=== PATIENT | female | born 2000 | race Caucasian/White ===

== ENCOUNTER → 2023-12-03 16:08 | Outpatient (BNVA) | payer OTHER, SELFPAY | PROVIDERS: Visit Provider Nurse Practitioner Psychiatric/Mental Health ==

== ENCOUNTER → 2024-02-28 14:13 | Outpatient (BNVA) | payer OTHER, SELFPAY | PROVIDERS: PCP Nurse Practitioner Family; Visit Provider Nurse Practitioner Family | DX: N76.0 Acute vaginitis (principal) | CPT/HCPCS: 81003 ==

== ENCOUNTER 2024-06-23 13:39 | Outpatient (REF) | payer OTHER, SELFPAY ==
--- NOTE | ~2024-06-23 | XR_ITS ---
EXAMINATION: XR LUMBOSACRAL SPINE CLINICAL INFORMATION: M54.50 - Low back pain, unspecified COMPARISON: None available. TECHNIQUE: Three views of the lumbosacral spine. FINDINGS: No acute cortical disruption or gross malalignment. No lytic or blastic lesions. No metallic or radiopaque foreign body. XR/XR lumbar spine 2-3V IMPRESSION: No acute fracture or listhesis. Negative x-ray. Electronically signed by: Dony Rosario MD 06/23/2024 03:28 PM EDT
== END 2024-06-23 13:40 | disposition home or self-care (01) ==
LOC: HO.HMGCX 13:39
PROVIDERS: PCP Nurse Practitioner Family; Visit Provider Nurse Practitioner Family
DX: M54.50 Low back pain, unspecified (principal); R30.0 Dysuria
CPT/HCPCS: 72100; 81003

== ENCOUNTER 2024-06-23 13:39 | Outpatient (AMB) | payer OTHER, SELFPAY ==
--- OUTSIDE RECORDS SUMMARY | 2024-06-23 13:41 | XMS_ITS | Data Portability ---
Author Organization [facility] [address] Address [address] [place] [address] Assessment Encounter Date Assessment Date Assessment LastModified by Organization Details LastModified Time 05/28/2023 05/28/2023 Based on your exam and presentation my recommendation if for you to go immediately to the Emergency Room. The ER is better equipped to be able to assess you and do more studies to make sure that your complaint is not life threatening. Unfortunately, in the urgent care setting we do not have the ability to do many tests and studies. My concern is for you, which is why my recommendation is the Emergency Room. jay Not available 05/28/2023 17:20:22 Plan of Treatment Reminders Order Date Submit Date Provider Last Modified By Organization Details Last Modified Time Details Appointments None recorded. Lab urinalysis, dipstick 2023 024 djkylevierMikhail _[facility], [address] [place] [address], [phone], 19:03:12 culture, urine 2023 024 [facility], [address] [place] [address], [place], [address], 22:05:54 test, urine 2023 024 jay [facility], [address] [place], [address], 17:20:59 urinalysis, dipstick 2023 024 jay _[facility], [address], [place], [address], 17:21:00 culture, urine 2023 [facility]), [address], [place], [address], 20:06:17 Referral None recorded. Procedures None recorded. Surgeries None recorded. Imaging None recorded. Medication Orders cephalexin 500 mg capsule 2023 [facility] [place], [address] [place], [address], 10:04:24 Diflucan 150 mg tablet 2023 [facility] [place], [address] [place], [address], 10:04:24 Patient TargetsNo targets recorded. Patient Instructions Encounter Date Encounter Id Patient Instructions Last Modified By Organization Details Last Modified Time 05/28/2023 [id number] painful urinatio n (dysuria): care instructions jay Not available 05/28/2023 17:20:57 09/27/2023 [id number] painful urinatio n (dysuria): care instructions sen Not available 09/27/2023 19:03:10 Reason for Referral None Reported. Results Created Date Observation Date Name Description Value Unit Range Abnormal Flag Note LastModifiedBy Organization Detail LastModifiedTime 05/28/1905/31/2023 URINE CULTU CECILIO BONILLA urine culture, routine FINAL REPORT abnormal Not Available [facility] ([facility]) [address] [facility], [place], [address], 05/31/2023 20:06:16 05/28/19 24 05/31/2023 URINE CULTU RECECILIO result 1 COMMEN T abnormal Beta hemol ytic Strep tococ cus, group B Less than 10,00 0 colon ies/m L Penic illin and ampic illin are drugs of choic e for treat ment of beta- hemol ytic strep tococ clarke infec tions . Susce ptibi lity testi ng of penic illin s and other beta- lacta m agent s appro quique by the FDA for treat ment of beta- hemol ytic strep tococ clarke infec tions need not be perfo rmed routi eben becau se nonsu scept ible isola edilia are extre teetee rare in any beta- hemol ytic strep tococ cus and have not been repor isabelle for Strep tococ cus pyoge edwar (grou p A). (CLSI ) Not Available [facility] ([facility]) [address] [place], [address], 05/31/2023 20:06:16 05/28/19 24 05/31/2023 URINE CULTU RE, ROUTI NE result 2 COMMEN T Mixed uroge nital jose 10,00 0-25, 000 colon y formi ng units per mL Not Available [facility] ([facility]) [address] [facility], [place], [address], 05/31/2023 20:06:16 05/28/19 24 05/28/2023 urina lysis , dipst ick Unknown Analyte Yellow Not Available [facility] [address] [place] [address], [phone], 05/28/2023 16:56:28 05/28/19 24 05/28/2023 urina lysis , dipst ick Unknown Analyte Slight ly Cloudy Not Available [facility] [address] [place] [address], [address], 05/28/2023 16:56:28 05/28/19 24 05/28/2023 urina lysis , dipst ick Unknown Analyte Negati ve Not Available [facility] [address] [place] [address], [phone], 05/28/2023 16:56:28 05/28/19 24 05/28/2023 urina lysis , dipst ick Unknown Analyte Negati ve Not Available [facility] [address] [place] [address], [address], 05/28/2023 16:56:28 05/28/19 24 05/28/2023 urina lysis , dipst ick Unknown Analyte Trace Not Available [facility] [address] [place] [address], [address], 05/28/2023 16:56:28 05/28/19 24 05/28/2023 urina lysis , dipst ick Unknown Analyte 1.025 Not Available [facility] [address] [place] [address], [address], 05/28/2023 16:56:28 05/28/19 24 05/28/2023 urina lysis , dipst ick Unknown Analyte Trace- intact Not Available [facility] [address] [place] [address], [address], 05/28/2023 16:56:28 05/28/19 24 05/28/2023 urina lysis , dipst ick Unknown Analyte 6.5 Not Available [facility] [address] [place] [address], [address], 05/28/2023 16:56:28 05/28/19 24 05/28/2023 urina lysis , dipst ick Unknown Analyte 30 mg/dL Not Available [facility] [address] [place] [address], [address], 05/28/2023 16:56:28 05/28/19 24 05/28/2023 urina lysis , dipst ick Unknown Analyte 1.0 E.U./d L Not Available [facility] [address] [place] [address], [phone], 05/28/2023 16:56:28 05/28/19 24 05/28/2023 urina lysis , dipst ick Unknown Analyte Negati ve Not Available [facility] [address] [place] [address], [address], 05/28/2023 16:56:28 05/28/19 24 05/28/2023 urina lysis , dipst ick Unknown Analyte Negati ve Not Available [facility] [address] [place] [address], [address], 05/28/2023 16:56:28 05/28/19 24 05/28/2023 pregn anthony test, urine Unknown Analyte negati ve Not Available ie [address], [address], 05/28/2023 16:56:06 09/27/19 24 09/28/2023 URINE CULTU RE, ROUTI NE urine culture, routine FINAL REPORT Not Available [facility] ([facility]) [address] [place], [address], 09/28/2023 22:05:54 09/27/1909/28/2023 URINE CULTU RE, ROUTI NE result 1 COMMEN T Cultu re shows less than 10,00 0 colon y formi ng units of bacte usama per fina liter of urine . This colon y count is not gener ally consi dered to be clini edith signi fican t. Not Available [facility] ([facility]) [address] [facility], [place], [address], 09/28/2023 22:05:54 09/27/19 24 09/27/2023 urina lysis , dipst ick Unknown Analyte Normal = light yellow Not Available [facility], [address], 09/27/2023 18:46:13 09/27/19 24 09/27/2023 urina lysis , dipst ick Unknown Analyte Yellow Not Available [facility] [address] [place] [address], [phone], 09/27/2023 18:46:13 09/27/19 24 09/27/2023 urina lysis , dipst ick Unknown Analyte Normal = clear Not Available [facility] [address] [place] [address], [address], 09/27/2023 18:46:13 09/27/19 24 09/27/2023 urina lysis , dipst ick Unknown Analyte Clear Not Available [facility] [address] [place] [address], [address], 09/27/2023 18:46:13 09/27/19 24 09/27/2023 urina lysis , dipst ick Unknown Analyte Normal = negati ve Not Available [facility] [address] [place] [address], [address], 09/27/2023 18:46:13 09/27/19 24 09/27/2023 urina lysis , dipst ick Unknown Analyte Negati ve Not Available [facility] [address] [place] [address], [address], 09/27/2023 18:46:13 09/27/19 24 09/27/2023 urina lysis , dipst ick Unknown Analyte Normal = Negati ve Not Available [facility] [address] [place] [address], [phone], 09/27/2023 18:46:13 09/27/19 24 09/27/2023 urina lysis , dipst ick Unknown Analyte Negati ve Not Available [facility] [address] [place] [address], [phone], 09/27/2023 18:46:13 09/27/19 24 09/27/2023 urina lysis , dipst ick Unknown Analyte Normal = Negati ve Not Available [facility] [address] [place] [address], [address], 09/27/2023 18:46:13 09/27/19 24 09/27/2023 urina lysis , dipst ick Unknown Analyte 40 mg/dL Not Available [facility] [address] [place] [address], [address], 09/27/2023 18:46:13 09/27/19 24 09/27/2023 urina lysis , dipst ick Unknown Analyte Normal = 1.010, 1.015, 1.020 Not Available [facility] ie [address], [address], 09/27/2023 18:46:13 09/27/19 24 09/27/2023 urina lysis , dipst ick Unknown Analyte 1.015 Not Available [facility] [address], [address], 09/27/2023 18:46:13 09/27/19 24 09/27/2023 urina lysis , dipst ick Unknown Analyte Normal = Negati ve Not Available [facility] [address] [place] [address], [address], 09/27/2023 18:46:13 09/27/19 24 09/27/2023 urina lysis , dipst ick Unknown Analyte Trace- lysed Not Available [facility] ie [address], [address], 09/27/2023 18:46:13 09/27/19 24 09/27/2023 urina lysis , dipst ick Unknown Analyte Normal = 6.5, 7.0, 7.5, 8.0 Not Available [facility] ie [address], [address], 09/27/2023 18:46:13 09/27/19 24 09/27/2023 urina lysis , dipst ick Unknown Analyte 7.0 Not Available e [address], [address], 09/27/2023 18:46:13 09/27/19 24 09/27/2023 urina lysis , dipst ick Unknown Analyte Normal = Negati ve Not Available ie [address], [address], 09/27/2023 18:46:13 09/27/19 24 09/27/2023 urina lysis , dipst ick Unknown Analyte Negati ve Not Available [facility] ie [address], [address], 09/27/2023 18:46:13 09/27/19 24 09/27/2023 urina lysis , dipst ick Unknown Analyte Normal = 0.2, 1.0 Not Available ie [address], [address], 09/27/2023 18:46:13 09/27/19 24 09/27/2023 urina lysis , dipst ick Unknown Analyte 0.2 E.U./d L Not Available [facility] ie [address], [address], 09/27/2023 18:46:13 09/27/19 24 09/27/2023 urina lysis , dipst ick Unknown Analyte Normal = Negati ve Not Available [facility] ie [address], [address], 09/27/2023 18:46:13 09/27/19 24 09/27/2023 urina lysis , dipst ick Unknown Analyte Negati ve Not Available [place] [facility] [address] [place], [address], 09/27/2023 18:46:13 09/27/19 24 09/27/2023 urina lysis , dipst ick Unknown Analyte Normal = Negati ve Not Available [facility] [address] [place], [address], 09/27/2023 18:46:13 09/27/19 24 09/27/2023 urina lysis , dipst ick Unknown Analyte Negati ve Not Available [facility] [address] [place], [address], 09/27/2023 18:46:13 Result Notes None recorded. Problems Name Problem SNOMED Code Status Onset Date Resolution Date Notes Provider Name and Address Organization Details Recorded Time Acne 34728497 Active Noemi ayon, [place] - [facility] 4 16:52:04 Depressive disorder 48954707 Active Noemi ayon, PA - [facility] 4 16:52:24 Dysuria 60747056 Active 024 BUZZ LEAHY NP [address] [place], [address], [place] - [facility] 4 17:14:24 Urinary symptoms 564457465 Active 024 BUZZ LEAHY NP [address] [place], [address], [place] - [facility] 4 17:15:30 Notes:PCOS Problem Notes None recorded. Medical Equipment None Reported. Allergies Allergen ID Allergen Name Allergen Category Reaction Reaction Severity Criticality Documentation Date Start Date Code Code System Note Provider Name and Address Organization Details Recorded Time 000772 Oxycontin medicatio n Not available Not available Not available 05/28/2023 73504 6 RxNorm Noemi ayon, PA - [facility] 4 16:50:17 107634 oxycodone medicatio n Not available Not available Not available 05/28/2023 7804 RxNorm DIEGO Engle - [facility] 16:50:24 Medications Name Sig Start Date Stop Date Status Note LastModified by Organization Details LastModified Time metformin 500 mg tablet TAKE 1 TABLET BY MOUTH ONCE DAILY 09/26 completed Not Available Not Available Not Available tizanidine 2 mg tablet TAKE 1 TABLET BY MOUTH THREE TIMES DAILY NEEDED FOR MUSCLE SPASMS. DO not drink alcohol OR drive while taking this med 05/27 completed Not Available Not Available Not Available fluconazole 150 mg tablet Take 1 tablet by oral route for 1 day, for possible yeast. active Not Available Not Available No t Available sulfamethox azole 400 mg-trimetho prim 80 mg tablet TAKE 1 TABLET BY MOUTH TWICE DAILY active Not Available Not Available No t Available tretinoin 0.025 % topical cream Apply small pea sized amount to entire face at night every 3rd night. May increase to every other night after about 3 weeks as tolerated , then increase to nightly as tolerated . Apply with a moisturiz er. If skin gets too dry use smaller amount. 05/27 completed Not Available Not Available Not Available bupropion HCl SR 100 mg tablet,12 hr sustained-r elease TAKE 1 TABLET by mouth once a day active Not Available Not Available No t Available amoxicillin 875 mg tablet TAKE 1 TABLET BY MOUTH TWICE DAILY FOR 10 DAYS 05/27 completed Not Available Not Available Not Available clindamycin 1 % topical gel Apply to affected areas once daily 05/27 completed Not Available Not Available Not Available doxycycline monohydrate 100 mg capsule take 1 cap by mouth once daily with food, do not lay down 1hr after taking. Do not take with dairy. Start after finishing current antibioti cs. 09/26 completed Not Available Not Available Not Available cephalexin 500 mg capsule Take 1 capsule 3 times a day by oral route for 7 days, for uti. active Not Available Not Available No t Available fluoxetine 10 mg capsule TAKE 1 CAPSULE BY MOUTH ONCE DAILY 05/27 completed Not Available Not Available Not Available hydroxyzine HCl 25 mg tablet TAKE 1 TABLET BY MOUTH THREE TIMES DAILY NEEDED FOR ANXIETY active Not Available Not Available No t Available ibuprofen 600 mg tablet TAKE 1 tablet by mouth with food or milk as needed Three times a day take scheduled with food for 1 week then as needed 05/27 completed Not Available Not Available Not Available spironolact one 50 mg tablet TAKE 1 TABLET BY MOUTH ONCE DAILY 09/26 completed Not Available Not Available Not Available escitalopra m 10 mg tablet TAKE 1 TABLET BY MOUTH ONCE DAILY active Not Available Not Available No t Available nitrofurant oin monohydrate /macrocryst als 100 mg capsule TAKE 1 CAPSULE BY MOUTH TWICE DAILY FOR 7 DAYS WITH food 05/27 completed Not Available Not Available Not Available Vitals Date Recorded Body height Body mass index (BMI) Body weight Oxygen saturation Oxygen saturation in Arterial blood by Pulse oximetry Heart rate Respiratory rate Body temperature Systolic blood pressure Diastolic blood pressure Provider Name and Address Organization Details Last Updated DateTime 4 162.56 cm 23.2 kg/m2 24502.9 7 g 97 % 97 % 76 /min 16 /min 98.3 [degF] 114 mm[Hg] 74 mm[Hg] Noemi Zuniga [facility] 4 16:55:21 Date Recorded Body height Body mass index (BMI) Body weight Oxygen saturation Oxygen saturation in Arterial blood by Pulse oximetry Heart rate Respiratory rate Body temperature Systolic blood pressure Diastolic blood pressure Provider Name and Address Organization Details Last Updated DateTime 4 162.56 cm 23.2 kg/m2 13821.9 7 g 98 % 98 % 78 /min 18 /min 98 [degF] 126 mm[Hg] 77 mm[Hg] ITALO SHAH [facility] 4 18:45:54 Social History Question Answer Notes LastModified by Max Rumpus Details LastModified Time Tobacco Smoking Status Current Every Day Smoker Noemi ayon PA [facility] 05/28/2023 16:53:58 Which Illicit Or Recreational Drugs Have You Used? Marijuana [email or web address] Information not available 05/28/2023 Sex: Unknown Functional Status Question Answer Note LastModified by Max Rumpus Details LastModified Time Do you use any illicit or recreational drugs? Yes [email or web address] Information not available 05/28/2023 Do you or have you ever used any other forms of tobacco or nicotine? Yes [email or web address] Information not available 05/28/2023 What is your level of alcohol consumption? Occasional [email or web address] Information not available 05/28/2023 Do you or have you ever used smokeless tobacco? Never used smokeless tobacco Information not available 05/28/2023 Do you or have you ever used e-cigarettes or vape? Current user of electronic cigarettes [email or web address] Information not available 05/28/2023 Mental Status None recorded. Family History Nothing Reported Notes:No famm Hx Medical History No medical history recorded. Gynecological History Statement/Question Response Date of LMP 08/31/2023 Is there any chance of ? No LMP Approximate Obstetrics History GPAL:G 0 P 0 0 0 0 Immunizations Vaccine Type Date Status Note Provider Nam e and Address Organization Details Recorded Time HPV9 6 completed ITALO MINEO null, PA - [facility] 09/27/2023 18:43:19 HPV9 9 completed ITALO MINEO null, PA - [facility] 09/27/2023 18:43:19 HPV9 6 completed ITALO MINEO null, PA - [facility] 09/27/2023 18:43:19 IPV 1 completed ITALO MINEO null, PA - [facility] 09/27/2023 18:43:19 IPV 1 completed ITALO MINEO null, PA - [facility] 09/27/2023 18:43:19 IPV 5 completed ITALO MINEO null, PA - [facility] 09/27/2023 18:43:19 IPV 0 completed ITALO MINEO null, PA - [facility] 09/27/2023 18:43:19 MMR 2 completed ITALO MINEO null, PA - [facility] 09/27/2023 18:43:19 MMR 4 completed ITALO MINEO null, PA - [facility] 09/27/2023 18:43:19 MMRV 7 completed ITALO MINEO null, PA - [facility] 09/27/2023 18:43:19 COVID-19, mRNA, LNP-S, PF, 30 mcg/0.3 mL dose 1 completed ITALO MINEO null, PA - [facility] 09/27/2023 18:43:19 COVID-19, mRNA, LNP-S, PF, 30 mcg/0.3 mL dose 1 completed ITALO MINEO null, PA - [facility] 09/27/2023 18:43:19 pneumococcal conjugate PCV 7 2 completed ITALO MINEO null, PA - [facility] 09/27/2023 18:43:19 pneumococcal conjugate PCV 7 1 completed ITALO MINEO null, PA - [facility] 09/27/2023 18:43:19 pneumococcal conjugate PCV 7 1 completed ITALO MINEO null, PA - [facility] 09/27/2023 18:43:19 pneumococcal conjugate PCV 7 0 completed ITALO MINEO null, PA - [facility] 09/27/2023 18:43:19 Tdap 2 completed ITALO MINEO null, PA - [facility] 09/27/2023 18:43:19 varicella 2 completed ITALO MINEO null, PA - [facility] 09/27/2023 18:43:19 varicella 1 completed ITALO MINEO null, PA - [facility] 09/27/2023 18:43:19 Influenza, split virus, trivalent, preservative 3 completed ITALO MINEO null, PA - [facility] 09/27/2023 18:43:19 Influenza, split virus, trivalent, preservative 6 completed ITALO MINEO null, PA - [facility] 09/27/2023 18:43:19 Influenza, split virus, trivalent, preservative 4 completed ITALO MINEO null, PA - [facility] 09/27/2023 18:43:19 Influenza, split virus, trivalent, preservative 3 completed ITALO MINEO null, PA - [facility] 09/27/2023 18:43:19 Influenza, split virus, trivalent, preservative 5 completed ITALO MINEO null, PA - [facility] 09/27/2023 18:43:19 Influenza, split virus, trivalent, preservative 1 completed ITALO MINEO null, PA - [facility] 09/27/2023 18:43:19 Influenza, split virus, trivalent, preservative 8 completed ITALO MINEO null, PA - [facility] 09/27/2023 18:43:19 Influenza, split virus, trivalent, preservative 3 completed ITALO MINEO null, PA - [facility] 09/27/2023 18:43:19 Influenza, split virus, trivalent, preservative 3 completed ITALO MINEO null, PA - [facility] 09/27/2023 18:43:19 Hep B, adolescent or pediatric 1 completed ITALO MINEO null, PA - [facility] 09/27/2023 18:43:19 Hep B, adolescent or pediatric 0 completed ITALO MINEO null, PA - [facility] 09/27/2023 18:43:19 Hep B, adolescent or pediatric 0 completed ITALO MINEO null, PA - [facility] 09/27/2023 18:43:19 Hib (HbOC) 2 completed ITALO MINEO null, PA - [facility] 09/27/2023 18:43:19 Hib (HbOC) 1 completed ITALO MINEO null, PA - [facility] 09/27/2023 18:43:19 Hib (HbOC) 1 completed ITALO MINEO null, PA - [facility] 09/27/2023 18:43:19 Hib (HbOC) 0 completed ITALO MINEO null, PA - [facility] 09/27/2023 18:43:19 meningococcal MCV4P 3 completed ITALO MINEO null, PA - [facility] 09/27/2023 18:43:19 meningococcal MCV4P 7 completed ITALO MINEO null, PA - [facility] 09/27/2023 18:43:19 DTaP 1 completed ITALO MINEO null, PA - [facility] 09/27/2023 18:43:19 DTaP 2 completed ITALO MINEO null, PA - [facility] 09/27/2023 18:43:19 DTaP 1 completed ITALO MINEO null, PA - [facility] 09/27/2023 18:43:19 DTaP 5 completed ITALO MINEO null, PA - [facility] 09/27/2023 18:43:19 DTaP 0 completed ITALO MINEO null, PA - [facility] 09/27/2023 18:43:19 Influenza, split virus, quadrivalent, PF 3 completed ITALO MINEO null, PA - [facility] 09/27/2023 18:43:19 Past Encounters Encounter ID Performer Location Encounter Start Date Encounter Closed Date Diagnosis/Indication Diagnosis SNOMED-CT Code Diagnosis ICD10 Code Diagnosis Note [id number] [facility] [address] [place] [address] 11/07/2017 11:03:53 11/07/2017 12:41:24 [id number] [facility] [address] [place] [phone] 11/03/2020 08:37:23 11/03/2020 12:06:13 [id number] BUZZ LEAHY [facility] [address] [place] [phone] 05/28/2023 16:44:49 05/28/2023 17:31:20 Dysuria 96912603 R30.0 Urinary symptoms 2996229 08 R39.9 [id number] [place] Hub[place] [address] [place] [phone] 09/27/2023 18:15:02 09/27/2023 19:06:00 Dysuria 03515682 R30.0 The following are recommenda tions to help with your symptoms and recovery:1 . Drink Plenty of fluids - Stay hydrated2. Finish full antibiotic course3. I recommend starting a Probiotic - I recommend Florastor4 . If you take Azo - this will help the burning and urgency feeling - just be aware it will turn your urine bright yellow. I would not hesitate to be seen again if you develop:1. Severe Back Pain2. Abdominal Pain3. Nausea and Vomiting4. Vaginal Discharge or Bleeding5. Fever > 101.0 You symptoms should improve within 72 hours for a typically UTI. If a urine culture was sent out to the lab for you we should get the results back within 4 days. This will be able to prove that your symptoms are caused by a UTI and it will also verify that the correct antibiotic was prescribed . Thank you for using [facility] - please don't hesitate to call our office if you have any questions or concerns. Health Concerns Section Related Observation LastModified by Organization Detai ls LastModified Time None Recorded Concern Status LastModified by Organization Details LastModified Time None Recorded Advance Directives Directive None Recorded Payers Insurance Date Sequence Insurance Name Policy Number Policy Brody Covered Member ID Brody Member ID Guarantor Name 09/27/2023 1 [facility] [facility] [id number] Maci Dawson [id number] Ayana Berg Notes Date Note Type Note Provider Name and Address Organization Details Recorded Time 4 text/html DysuriaReported bypatient.Quality:pressure; recently treated for a uti now has flank pain, urinary hesitancy and sensation of incomplete emptying Severity:worsening; severe Duration:constant BUZZ LEAHY NP [address] [place], [address], [place] - [facility] 05/28/2023 17:31:54 4 text/html UTI female UCReported bypatient.source of patient informationInformation obtained from patient; Patient arrived at Urgent Care ambulatory UTI Symptoms:no blood in the urine; no vaginal discharge; no pain in the flank; no fever/chills; no incontinence; no recurrent UTI;urgency;burning sensation during urination; urine malodor Severity:moderate Duration:started ; 7 days Modifying Factors:nothing gives relief Lower back and flank pain, odor x1 week. has recurrent uti Aleisha Huber, KERRI [address] [place], [address], [place] - [facility] 09/27/2023 19:05:15 OBGyn Episode No OBEpisode recorded.
--- NOTE | 2024-06-23 13:59 | AM.OFFWIN_ITS ---
Intake Vital Signs 06/23/24 14:04 Weight 168 lb BP 140/90 H Blood Pressure Location Lt brachial Position Sitting Pulse 102 H Pulse Source Pulse Oximeter Temp 98.5 F Temp Source Oral Intake Visit Reasons: EP ?UTI Intake Note: Patient here fro nausea, lower back pain that has been present for a couple days. Patient Tobacco Use Status: Never used Tobacco Allergies oxicodone Allergy (Mild, Uncoded 06/23/24 14:14) Itching Do you need a note to return to daycare/school/sports/work: Yes HPI HPI Comments History of Present Illness Details 23 y/o Female patient who presents to [facility] walk in clinic with c/o nausea, lower back pain that has been present for a couple days. Denies fevers, chills, vomiting but endorses Nausea. Denies vaginal symptoms. [facility] Medical History (Updated 06/23/24 @ 15:09 by Edwige Jaramillo NP) Dysuria Lumbar back pain History of PCOS Cocaine addiction PTSD (post-traumatic stress disorder) Depression Anxiety Sinusitis Asthma Surgical History (Updated 04/03/24 @ 14:33 by Brooke Restrepo) [place] teeth removed H/O adenoidectomy History of tonsillectomy Family History (System 04/03/24 @ 14:33 by Brooke Restrepo) Father Substance abuse Alcohol abuse FH: mental illness Asthma Mother Substance abuse Alcohol abuse FH: mental illness Asthma Maternal Grandfather Diabetes Maternal Grandmother Leukemia Social History (System 04/03/24 @ 14:33 by Brooke Restrepo) Household Members: Family Housing: House Patient Tobacco Use Status: Never used Tobacco e-Cigarette/Vaping Use: Currently Using Second Hand Smoke Exposure: Yes Substance Use Type: Crack/Cocaine, Marijuana and Other service: No Current occupational status: employed Current occupation: [employer] Current occupational exposures/hazards: No Cognitive needs: No Hearing needs: No Vision needs: No Physical Exam Vital Signs: Last Vital Signs Temp 98.5 F 06/23/24 14:04 Pulse 102 H 06/23/24 14:04 BP 140/90 H 06/23/24 14:04 Const General: no acute distress Orientation/consciousness: patient oriented x3 General: Yes no CVA tenderness Back/Spine/Pelvis Back: no CVA tenderness and back tenderness Thoracic/Lumbar Spine: thoracic spinal tenderness and lumbar spinal tenderness Neuro General: patient oriented x3 Psych Speech and movement: Normal speech and movement present Results AMB Urinalysis, Automated UA Leukoctes 0 Shira/uL Last Edit by Luis Gusman [facility] on 06/23/24 14:45 UA Nitrite Negative Last Edit by KeenaZayra Gusman [facility] on 06/23/24 14:45 UA Urobilinogen 0.2 mg/dL Last Edit by Luis Gusman [facility] on 06/23/24 14:45 UA Protein 15 mg/dL Last Edit by KeenaZayra Gusman, [facility] on 06/23/24 14:45 UA pH 6.0 Last Edit by KeenaZayra Gusman [facility] on 06/23/24 14:45 UA Blood 10 Nolberto/uL Last Edit by Luis Gusman [facility] on 06/23/24 14:45 UA Specific [place] 1.030 Last Edit by KeenaZayra Gusman [facility] on 06/23/24 14:45 UA Ketone Positive Last Edit by Luis Gusman [facility] on 06/23/24 14:45 UA Bilirubin 0 mg/dL Last Edit by KeenaZayra Gusman [facility] on 06/23/24 14:45 UA Glucose 0 mg/dL Last Edit by KeenaZayra Gusman [facility] on 06/23/24 14:45 Results Reviewed Results Reviewed: Laboratory Last Values Urine pH (Auto) 6.0 06/23/24 14:44 Specific [place] (Auto) 1.030 06/23/24 14:44 Urine Protein (Auto) 15 mg/dL 06/23/24 14:44 Glucose (UA)(Auto) 0 mg/dL 06/23/24 14:44 Urine Ketones (Auto) Positive 06/23/24 14:44 Urine Blood (Auto) 10 Nolberto/uL 06/23/24 14:44 Urine Nitrite (Auto) Negative 06/23/24 14:44 Urine Bilirubin (Auto) 0 mg/dL 06/23/24 14:44 Urine Urobilinogen (Auto) 0.2 mg/dL 06/23/24 14:44 Leukocyte Esterase (Auto) 0 Shira/uL 06/23/24 14:44 Assessment & Plan Assessment & Plan (1) Lumbar back pain: Code(s): M54.50 - Low back pain, unspecified Plan: Ordered Lumbar X-rays. NSAIDs or Acetaminophen Ordered Flexeril. (2) Dysuria: Code(s): R30.0 - Dysuria Plan: Rapid Urinalysis - negative for Leuko and NIT, but positive for small Blood. Possible Kidney Stones. Orders: Orders AMB Urinalysis Automated Today Z13.9 - Encounter for screening, unspecified XR lumbar spine 2-3V Today M54.50 - Low back pain, unspecified Medications: New ibuprofen 800 mg PO Q8H 20 tabs 0RF M54.50 - Low back pain, unspecified cyclobenzaprine 5 mg PO BEDTIME 10 tabs 0RF M54.50 - Low back pain, unspecified Discontinued metronidazole Discontinued Reason: Patient Completed Course 500 mg PO BID 7 days 14 tabs 0RF N76.0 - Acute vaginitis Coding Level of Care Code Est Pt Level 4 (37605) Diagnoses Lumbar back pain M54.50 Dysuria R30.0 Time Spent (min) 20
[2024-06-23 14:04] VITALS: BP 140/90; PULSE 102; TEMP 36.9
== END 2024-06-23 15:31 | disposition home or self-care (01) ==
PROVIDERS: PCP Nurse Practitioner Family; Visit Provider Nurse Practitioner Family
DX: M54.50 Low back pain, unspecified (principal); R30.0 Dysuria; Z13.9 Encounter for screening, unspecified

== ENCOUNTER → 2024-06-23 15:03 | Outpatient (BNV) | payer OTHER, SELFPAY | PROVIDERS: PCP Nurse Practitioner Family; Visit Provider Radiology Diagnostic Radiology | DX: M54.50 Low back pain, unspecified (principal) | CPT/HCPCS: 72100 ==

== ENCOUNTER 2024-12-19 08:10 | Outpatient (REF) | payer OTHER, SELFPAY ==
--- OUTSIDE RECORDS SUMMARY | 2024-12-19 09:42 | XMS_ITS | Data Portability ---
Author Organization DIEGO [facility]a [address] Address [address] [place] [address] Assessment Encounter Date Assessment Date Assessment LastModified [...] None recorded. Lab urinalysis, dipstick 2023 024 [email or web address] [address], [address] [place], [address], 19:03:12 culture, urine 2023 024 DANFORTH [facility], [address] [place] [address], [place], [address], 22:05:54 test, urine 2023 024 jay [address], [address] [place], [address], 17:20:59 urinalysis, dipstick 2023 024 jay [address], [address] [facility] [address], [place], [address], 17:21:00 culture, urine 2023 DANFORTH [facility] ([place]), [address], [place], [address], 20:06:17 Referral None recorded. Procedures None recorded. Surgeries None recorded. Imaging None recorded. Medication Orders cephalexin 500 mg capsule 2023 [facility] - [place], [place], [address] [place], [address], 10:04:24 Diflucan 150 mg tablet 2023 [facility] - [place], [address] [place], [address], 10:04:24 Patient TargetsNo targets recorded. Patient Instructions Encounter Date Encounter Id Patient Instructions Last Modified By Organization Details Last Modified Time 05/28/2023 [id number] painful urinatio n (dysuria): care instructions jay Not available 05/28/2023 17:20:57 09/27/2023 [id number] painful urinatio n (dysuria): care instructions sen Not available 09/27/2023 19:03:10 Reason for Referral None Reported. Results Created Date Observation Date Name Description Value Unit Range Abnormal Flag Note LastModifiedBy Organization Detail LastModifiedTime 05/28/1905/31/2023 URINE CULTU CECILIO BONILLA urine culture, routine FINAL REPORT abnormal Not Available [facility] ([facility]) [address] [facility], [place], [address], 05/31/2023 20:06:16 05/28/19 24 05/31/2023 URINE CULTU CECILIO BONILLA result 1 COMMEN T abnormal Beta hemol [...] p A). (CLSI ) Not Available [facility] ([facility]) [address] [place], [address], 05/31/2023 20:06:16 05/28/19 24 05/31/2023 URINE CULTU RE, ROUTI NE result 2 COMMEN T Mixed uroge nital jose 10,00 0-25, 000 colon y formi ng units per mL Not Available [facility] ([facility]) [address] [place], [address], 05/31/2023 20:06:16 05/28/19 24 05/28/2023 urina lysis , dipst ick Unknown Analyte Yellow Not Available e [address] [place] [address], [address], 05/28/2023 16:56:28 05/28/19 24 05/28/2023 urina lysis , dipst ick Unknown Analyte Slight ly Cloudy Not Available ie l[address] [place] [address], [address], 05/28/2023 16:56:28 05/28/19 24 05/28/2023 urina lysis , dipst ick Unknown Analyte Negati ve Not Available ie [address] [place] [address], [address], 05/28/2023 16:56:28 05/28/19 24 05/28/2023 urina lysis , dipst ick Unknown Analyte Negati ve Not Available [facility] [address] [place] [address], [address], 05/28/2023 16:56:28 05/28/19 24 05/28/2023 urina lysis , dipst ick Unknown Analyte Trace Not Available [facility] [address] [place] [address], [address], 05/28/2023 16:56:28 05/28/19 24 05/28/2023 urina lysis , dipst ick Unknown Analyte 1.025 Not Available [address], [address], 05/28/2023 16:56:28 05/28/19 24 05/28/2023 urina lysis , dipst ick Unknown Analyte Trace- intact Not Available [facility] [address] [place] [address], [address], 05/28/2023 16:56:28 05/28/19 24 05/28/2023 urina lysis , dipst ick Unknown Analyte 6.5 Not Available [facility] [address] [place] [address], [address], 05/28/2023 16:56:28 05/28/19 24 05/28/2023 urina lysis , dipst ick Unknown Analyte 30 mg/dL Not Available [facility] [address] [place] [address], [address], 05/28/2023 16:56:28 05/28/19 24 05/28/2023 urina lysis , dipst ick Unknown Analyte 1.0 E.U./d L Not Available [facility] [address] [place] [address], [address], 05/28/2023 16:56:28 05/28/19 24 05/28/2023 urina lysis , dipst ick Unknown Analyte Negati ve Not Available ie [address] [place] [address], [address], 05/28/2023 16:56:28 05/28/19 24 05/28/2023 urina lysis , dipst ick Unknown Analyte Negati ve Not Available [facility] [address] [place] [address], [address], 05/28/2023 16:56:28 05/28/19 24 05/28/2023 pregn anthony test, urine Unknown Analyte negati ve Not Available [facility] [address] [place] [address], [address], 05/28/2023 16:56:06 09/27/19 24 09/28/2023 URINE CULTU RE, ROUTI NE urine culture, routine FINAL REPORT Not Available [facility] ([facility]) [address] [place], [address], 09/28/2023 22:05:54 09/27/19 24 09/28/2023 URINE CULTU RE, ROUTI NE result 1 COMMEN T Cultu re shows less than 10,00 0 colon y formi ng units of bacte usama per fina liter of urine . This colon y count is not gener ally consi dered to be clini edith signi fican t. Not Available [facility] ([facility]) [address] [facility], [place], [address], 09/28/2023 22:05:54 09/27/19 24 09/27/2023 urina lysis , dipst ick Unknown Analyte Normal = light yellow Not Available [facility] [address] [place] [address], [address], 09/27/2023 18:46:13 09/27/19 24 09/27/2023 urina lysis , dipst ick Unknown Analyte Yellow Not Available [facility] l[facility] [address] [place] [address], [address], 09/27/2023 18:46:13 09/27/19 24 09/27/2023 urina lysis , dipst ick Unknown Analyte Normal = clear Not Available [facility] ie l[address] [place] [address], [address], 09/27/2023 18:46:13 09/27/19 24 09/27/2023 urina lysis , dipst ick Unknown Analyte Clear Not Available [facility] [address] [place] [address], [address], 09/27/2023 18:46:13 09/27/19 24 09/27/2023 urina lysis , dipst ick Unknown Analyte Normal = negati ve Not Available [facility] ie l[address] [place] [address], [address], 09/27/2023 18:46:13 09/27/19 24 09/27/2023 urina lysis , dipst ick Unknown Analyte Negati ve Not Available [facility] ie l[address] [place] [address], [address], 09/27/2023 18:46:13 09/27/19 24 09/27/2023 urina lysis , dipst ick Unknown Analyte Normal = Negati ve Not Available [facility] ie l[address] [place] [address], [address], 09/27/2023 18:46:13 09/27/19 24 09/27/2023 urina lysis , dipst ick Unknown Analyte Negati ve Not Available [facility] ie l[address] [place] [address], [address], 09/27/2023 18:46:13 09/27/19 24 09/27/2023 urina lysis , dipst ick Unknown Analyte Normal = Negati ve Not Available [facility] [address] [place] [address], [address], 09/27/2023 18:46:13 09/27/19 24 09/27/2023 urina lysis , dipst ick Unknown Analyte 40 mg/dL Not Available [facility] [address] [place] [address], [address], 09/27/2023 18:46:13 09/27/19 24 09/27/2023 urina lysis , dipst ick Unknown Analyte Normal = 1.010, 1.015, 1.020 Not Available [facility] [address] [place] [address], [address], 09/27/2023 18:46:13 09/27/19 24 09/27/2023 urina lysis , dipst ick Unknown Analyte 1.015 Not Available [facility] [address] [place] [address], [address], 09/27/2023 18:46:13 09/27/19 24 09/27/2023 urina lysis , dipst ick Unknown Analyte Normal = Negati ve Not Available [facility] [address] [place] [address], [address], 09/27/2023 18:46:13 09/27/19 24 09/27/2023 urina lysis , dipst ick Unknown Analyte Trace- lysed Not Available [facility] [address] [place] [address], [address], 09/27/2023 18:46:13 09/27/19 24 09/27/2023 urina lysis , dipst ick Unknown Analyte Normal = 6.5, 7.0, 7.5, 8.0 Not Available [facility] [address] [place] [address], [address], 09/27/2023 18:46:13 09/27/19 24 09/27/2023 urina lysis , dipst ick Unknown Analyte 7.0 Not Available [facility] [address] [place] [address], [address], 09/27/2023 18:46:13 09/27/19 24 09/27/2023 urina lysis , dipst ick Unknown Analyte Normal = Negati ve Not Available [facility] [address] [place] [address], [address], 09/27/2023 18:46:13 09/27/19 24 09/27/2023 urina lysis , dipst ick Unknown Analyte Negati ve Not Available [facility] [address] [place] [address], [address], 09/27/2023 18:46:13 09/27/19 24 09/27/2023 urina lysis , dipst ick Unknown Analyte Normal = 0.2, 1.0 Not Available [facility] [address] [place] [address], [address], 09/27/2023 18:46:13 09/27/19 24 09/27/2023 urina lysis , dipst ick Unknown Analyte 0.2 E.U./d L Not Available [facility] [address] [place] [address], [address], 09/27/2023 18:46:13 09/27/19 24 09/27/2023 urina lysis , dipst ick Unknown Analyte Normal = Negati ve Not Available [facility] [address] [place] [address], [address], 09/27/2023 18:46:13 09/27/19 24 09/27/2023 urina lysis , dipst ick Unknown Analyte Negati ve Not Available [facility] ie [address] [place], [address], 09/27/2023 18:46:13 09/27/19 24 09/27/2023 urina lysis , dipst ick Unknown Analyte Normal = Negati ve Not Available [facility] [address] [place], [address], 09/27/2023 18:46:13 09/27/19 24 09/27/2023 urina lysis , dipst ick Unknown Analyte Negati ve Not Available [facility] [address] [place], [address], 09/27/2023 18:46:13 Result Notes None recorded. Problems Name Problem SNOMED Code Status Onset Date Resolution Date Notes Provider Name and Address Organization Details Recorded Time Acne 45276784 Active Noemi ayon, [place] - [facility] 4 16:52:04 Depressive disorder 60007472 Active Noemi ayon, PA - [facility] 4 16:52:24 Dysuria 51911918 Active 024 BUZZ LEAHY NP [address] [facility] [place], [address], [place] - [facility] 4 17:14:24 Urinary symptoms 882762162 Active 024 BUZZ LEAHY NP [address] [facility] [place], [address], [place] - [facility] 4 17:15:30 Notes:PCOS Problem Notes None recorded. Medical Equipment None Reported. Allergies Allergen ID Allergen Name Allergen Category Reaction Reaction Severity Criticality Documentation Date Start Date Code Code System Note Provider Name and Address Organization Details Recorded Time 275808 Oxycontin medicatio n Not available Not available Not available 05/28/2023 55636 6 RxNorm Noemi ayon, PA - [facility] 4 16:50:17 424270 oxycodone medicatio n Not available Not available Not available 05/28/2023 7804 RxNorm DIEGO Engle - [facility] 4 16:50:24 Medications Name Sig Start Date Stop [...] Heart rate Respiratory rate Body temperature Systolic And Diastolic Provider Name and Address Organization Details Last Updated DateTime 4 162.56 cm 23.2 kg/m2 24464.9 7 g 97 % 97 % 76 /min 16 /min 98.3 [degF] 114/74 mm[Hg] Noemi Zuniga [facility] 4 16:55:21 Date Recorded Body height Body mass index (BMI) Body weight Oxygen saturation Oxygen saturation in Arterial blood by Pulse oximetry Heart rate Respiratory rate Body temperature Systolic And Diastolic Provider Name and Address Organization Details Last Updated DateTime 4 162.56 cm 23.2 kg/m2 70604.9 7 g 98 % 98 % 78 /min 18 /min 98 [degF] 126/77 mm[Hg] ITALO SHAH [facility] 4 18:45:54 Social History Question Answer Notes LastModified by [email or web address] Details LastModified Time Tobacco Smoking Status Current Every Day Smoker Noemi ayon [facility] 05/28/2023 16:53:58 Which Illicit Or Recreational Drugs Have You Used? Marijuana [email or web address] Information not available 05/28/2023 Sex: Unknown Functional Status Question Answer Note LastModified by [email or web address] Details LastModified Time Do you use any illicit or recreational drugs? Yes [email or web address] Information not available 05/28/2023 Do you or have you ever used any other forms of tobacco or nicotine? Yes [email or web address] Information not available 05/28/2023 What is your level of alcohol consumption? Occasional Information not available 05/28/2023 Do you or have you ever used smokeless tobacco? Never used smokeless tobacco Information not available 05/28/2023 Do you or have you ever used e-cigarettes or vape? Current user of electronic cigarettes Information not available 05/28/2023 Mental Status None [...] [facility] 09/27/2023 18:43:19 DTaP 5 completed ITLAO MINEO null, PA - [facility] 09/27/2023 18:43:19 DTaP 0 completed ITALO MINEO null, PA - [facility] 09/27/2023 18:43:19 Influenza, split virus, quadrivalent, PF 3 completed ITALO MINEO null, PA - [facility] 09/27/2023 18:43:19 Past Encounters Encounter ID Performer Location Encounter Start Date Encounter Closed Date Diagnosis/Indication Diagnosis SNOMED-CT Code Diagnosis ICD10 Code Diagnosis IMO Codes Diagnosis Note [id number] [address] [address] [place] [phone] 11/07/2017 11:03:53 11/07/2017 12:41:24 [id number] [facility] [address] [place] [phone] 11/03/2020 08:37:23 11/03/2020 12:06:13 [id number] BUZZ LEAHY NP [address] [place] [phone] 05/28/2023 16:44:49 05/28/2023 17:31:20 Dysuria 25473113 R30.0 Urinary symptoms 7638606 08 R39.9 [id number] Aleisha Huber [place] [address] [place] [phone] 09/27/2023 18:15:02 09/27/2023 19:06:00 Dysuria 97370182 R30.0 The following are recommenda tions to [...] was prescribed . Thank you for using [facility] - please don't hesitate to call our [...] Brody Member ID Guarantor Name 09/27/2023 1 [facility] [facility] [id number] Maci Dawson [id number] Ayana Berg Notes Date Note Type Note Provider Name and Address Organization Details Recorded Time 4 text/htm l DysuriaReported by PatientHPIFor quality, patient reportspressure(recently treated for a utinow has flank pain,urinary hesitancy and sensation of incomplete emptying). For severity, patient reportsworseningbut reportssevere. For duration, patient reportsconstant. BUZZ LEAHY NP [address] [place], [address], DIEGO - [facility] 05/28/2023 17:31:54 4 text/htm l UTI female UCReported by PatientUrinary problemsFor uti symptoms, patient reportsurgencyandburning sensation during urinationbut reportsno blood in the urine,no vaginal discharge,no pain in the flank,no fever/chills,no incontinence, andno recurrent uti(urine malodor). For source of patient information, patient reportsinformation obtained from patientandpatient arrived at urgent care ambulatory. For severity, patient reportsmoderate. For duration, patient reportsstarted ___and7 days. For modifying factors, patient reportsnothing gives relief. Urinary Complaint FemaleReported by Patient Lower back and flank pain, odor x1 week. has recurrent uti Aleisha Huber NP [address] [place], [address], [place] - [facility] 09/27/2023 19:05:15 OBGyn Episode No OBEpisode recorded.
[2024-12-19 11:10] LABS: MANUAL DIFF FLAG NO
[2024-12-19 11:47] LABS: Hematocrit 40.5 % (37.0-47.0); Hemoglobin 13.6 g/dl (12.0-16.0); Imm Gran Abs Auto 0.09 X10*3/uL (0.00-0.03); Imm Gran Pct Auto 1.0 % (0.0-0.4); Lymphocytes Absolute Auto 1.7 X10*3/uL (1.2-4.9); Mean Corpuscular HGB Conc 33.6 g/dl (31.0-35.0); Mean Corpuscular Hemoglobin 32.5 pg (27.0-33.0); Mean Corpuscular Volume 96.7 fL (80.0-98.0); NRBC Abs Auto 0.000 X10*3/uL (0.0-0.012); NRBC Pct Auto 0.0 /100WBC (0.0-0.2); Platelet Count 233 X10*3/uL (160-400); Red Blood Count 4.19 X10*6/uL (4.20-5.50); White Blood Count 9.4 X10*3/uL (4.8-10.8)
[2024-12-19 12:09] LABS: Alanine Aminotransferase 19 U/L (0-31); Albumin Level 4.4 g/dL (3.5-5.0); Alkaline Phosphatase 92 U/L (39-117); Anion Gap 11 (12-20); Aspartate Amino Transferase 22 U/L (5-31); Blood Urea Nitrogen 9 mg/dL (9-16); Calcium 9.3 mg/dL (8.4-10.2); Carbon Dioxide 24 mmol/L (22-29); Chloride 110 mmol/L (96-108); Cholesterol 209 mg/dL (<200); Estimated Glomerular Filt Rate > 60; HDL Cholesterol 56 mg/dL (>40); Potassium 4.2 mmol/L (3.3-5.1); Sodium 141 mmol/L (135-145); Total Protein 7.1 g/dL (6.5-8.0); Triglycerides 75 mg/dL (<150)
[2024-12-19 12:19] LABS: Appearance Urine Cloudy; Glucose Urine UA Negative (Negative); PH 6.0 (5.0-9.0); Specific Gravity - Urine 1.025 (1.005-1.025); UMIC TRIGGER UACC YES
[2024-12-19 12:20] LABS: Cannabinoid Screen Urine POSITIVE (Not Detect)
[2024-12-19 12:36] LABS: Syphilis Screen Nonreactive (Nonreactive)
[2024-12-19 12:37] LABS: HBS Num1 1.50 mIU/mL (0-7.99); HBc Num1 0.07 S/CO (0.00-0.79); HBsAGNum1 0.35 S/CO (0.00-0.99); HIV Num 1 0.06 S/CO (0.00-0.99); Hepatitis B Surface Antigen Negative (Negative); ~HepC Num1 0.09 S/CO (0.00-0.79); ~Hepatitis B Surface Antibody NONREACTIVE (Nonreactive); ~Hepatitis C Antibody Nonreactive (Nonreactive)
[2024-12-19 13:01] LABS: Microalbum/Creatinine Ratio Ur 6.9 ug/mg cr (<30)
== END 2024-12-19 08:11 | disposition home or self-care (01) ==
LOC: HO.WFDLDS 08:10
PROVIDERS: PCP Nurse Practitioner Family; Referring Provider Internal Medicine Medical Oncology; Visit Provider Nurse Practitioner Family
DX: Z00.00 Encounter for general adult medical examination without abnormal findings (principal); D72.829 Elevated white blood cell count, unspecified; Z23 Encounter for immunization; Z12.4 Encounter for screening for malignant neoplasm of cervix; Z12.83 Encounter for screening for malignant neoplasm of skin; Z72.89 Other problems related to lifestyle; Z79.899 Other long term (current) drug therapy; Z20.2 Contact with and (suspected) exposure to infections with a predominantly sexual mode of transmission
CPT/HCPCS: 36415; 80053; 80061; 80307; 81001; 81003; 82043; 82306; 82570; 83615; 84443; 85025; 86704; 86706; 86780; 86803; 87340; 87389; 90471; 90656; 96127

== ENCOUNTER 2024-12-19 08:10 | Outpatient (AMB) | payer OTHER, SELFPAY ==
--- NOTE | 2024-12-19 08:12 | MHC.PC.OV ---
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 Required: No Is last menstrual period known: Yes Last menstrual period: 12/19/24 Post menopausal: No Patient : No Allergies oxicodone Allergy (Mild, Uncoded 12/19/24 08:28) Itching Medication List - Last Reconciled 12/19/24 by Sera Peterson CNP clonidine HCl mg PO BEDTIME escitalopram oxalate (Lexapro) 10 mg PO DAILY hydroxyzine HCl 25 mg PO BID PRN ibuprofen 800 mg PO Q8H oxcarbazepine (Trileptal) 300 mg PO BID quetiapine (Seroquel) 25 mg PO BEDTIME PRN trazodone 50 mg PO BEDTIME PRN Tobacco use date assessed: 12/19/24 Dental Screening Dental Screen Date: 12/19/24 Did you have a dental visit in the last 12 months?: Yes Did you have a dental problem in the last 6 months where you did not have access to dental care?: No Was dental information given to patient?: Patient has dentist HPI HPI Comments History of Present Illness Details 24-year-old female presents for an extended physical exam. He admits to taking his medications as prescribed without adverse reactions. She notes that her mental health has significantly improved. Her mood has been controlled. She was in rehab for cocaine and alcohol use disorder x 1 month in the summer. She has not been using cocaine for the past 5-6 months. She has been drinking occasionally since rehab. She had 6 shots of whiskey a few days ago. She requests accommodation letter for a standing desk at her workplace. Acute issue(s) - None Past Medical History - Anxiety, depression, PTSD, cocaine addition, PCOS, childhood asthma , myopia Social History - Former smoker. Vapes nicotine daily. She drinks occasionally, drinks 6 shots of whisky a few days ago. Smokes cannabis 3 times daily, every day, unable to quantify - Has been making healthy dietary choices. Exercises routinely. Generally sleep well - She notes that she sexually active, in a polygamous relationship, does not use protection, has no concerns for STDs. Willing to get screening for STD. Health maintenance - Last eye exam was in 03/2024 with [facility] - Last dental visit was in 11/2024 - Last Tdap was in 11/13/2023 - Has not been vaccinated for the flu this season; receives vaccination today - Last pap smear test was about 4 years ago with [facility]: Normal. Referred to [facility] criminal justice professor Specialists - [facility]: Requests a new referral - N: Psychiatrist every 2-3 months, therapist weekly [facility] Medical History Dysuria Lumbar back pain History of PCOS Cocaine addiction PTSD (post-traumatic stress disorder) Depression Anxiety Sinusitis Asthma Surgical History (Updated 04/03/24 @ 14:33 by Brooke Restrepo) [place] teeth removed H/O adenoidectomy History of tonsillectomy Family History Father Substance abuse Alcohol abuse FH: mental illness Asthma Mother Substance abuse Alcohol abuse FH: mental illness Asthma Maternal Grandfather Diabetes Maternal Grandmother Leukemia Social History Household Members: Family Housing: House Patient Tobacco Use Status: Never used Tobacco e-Cigarette/Vaping Use: Currently Using Second Hand Smoke Exposure: Yes Substance Use Type: Crack/Cocaine, Marijuana and Other service: No Current occupational status: employed Current occupation: [employer] Current occupational exposures/hazards: No Cognitive needs: No Hearing needs: No Vision needs: No Female Reproductive History Menstrual Date of last menstrual period: 12/19/24 Questionnaire PHQ-9 Over the last 2 weeks, how often have you been bothered by any of the following problems? 1. Little interest or pleasure in doing things: several days 2. Feeling down, depressed, or hopeless: several days 3. Trouble falling or staying asleep, or sleeping too much: not at all 4. Feeling tired or having little energy: not at all 5. Poor appetite or overeating: several days 6. Feeling bad about yourself - or that you are a failure or have let yourself or your family down: several days 7. Trouble concentrating on things, such as reading the newspaper or watching television: several days 8. Moving or speaking so slowly that other people could have noticed. Or the opposite - being so fidgety or restless that you have been moving around a lot more than usual: not at all 9. Thoughts that you would be better off or of hurting yourself in some way: not at all Total score: 5 Depression Screening Interpretation: Positive Depression Screening Follow-up: Existing condition and In treatment Depression Screening Done: Yes 68447 - PHQ-9 Billing: Yes Source: Developed by Drs. Asael Limon, Licha Norris, Victoriano Mane and colleagues, with an educational juwan from [employer] Thrive Questionnaire Date Thrive assessed: 12/19/24 I am a: Patient What is your living situation today?: I have a steady place to live Within the past 12 months, did the food you bought not last and you didn't have the money to get more?: Never true Within the past 12 months, did you worry whether your food would run out before you got money to buy more?: Never true Do you have trouble paying for medicines?: No Do you have trouble getting transportation to medical appointments?: No Do you have trouble paying your heating and electricity bill?: No Do you have trouble taking care of your child, family member or friend?: No Do you have trouble with day-to-day activities such as bathing, preparing meals, shopping, managing finances, etc.?: No Are you currently unemployed and looking for a job?: No Are you interested in more education?: Yes Please select the resources that you would like help with: Education Currently or been in a relationship where the following occur: Controlled Emotionally THRIVE Score: 1 AUDIT C Alcohol Use Questionnaire (AUDIT-C) 1. How often do you have a drink containing alcohol?: Monthly or less 2. How many drinks containing alcohol do you have on a typical day when you are drinking?: 10 or more 3. How often do you have six or more drinks on one occasion?: Less than monthly Total Score: 6 Score Reviewed/Action Taken: Yes CJ-7 AMB Questionnaire CJ-7 Date CJ - 7 assessed: 12/19/24 Feeling nervous, anxious, or on edge: 1 = Several days Not being able to stop or control worryin = Several days Worrying too much about different things: 1 = Several days Trouble relaxin = Several days Being so restless that it is hard to sit still: 0 = Not at all Becoming easily annoyed or irritable: 1 = Several days Feeling afraid as if something awful might happen: 0 = Not at all Total CJ-7 score (0-4 normal; 5-9 mild; 10-14 moderate; 15-21 severe): 5 Source: Developed by Drs. Asael Limon, Licha Norris, Victoriano Mane and colleagues, with an educational juwan from [employer] CJ-7 Assessment Billing CJ-7 Assessment Tool: CJ-7 Assessment 74802 Review of Systems Const Details: Denies chills, Denies fatigue, Denies fever(s), Denies headache(s) and Denies weakness HEENT Denies change in vision, Denies dizziness, Denies headache(s), Denies hearing loss, Denies nasal congestion, Denies sinus pain, Denies sinus pressure and Denies sore throat Card Denies chest pain, Denies lightheadedness, Denies dyspnea and Denies other (palpitations) Resp Denies cough, Denies dyspnea and Denies wheezing GI Denies abdominal pain, Denies melena, Denies hematochezia, Denies change in bowel habits, Denies dyspepsia and Denies nausea Denies hematuria and Denies dysuria Musc Denies abnormal gait, Denies myalgias, Denies arthralgias, Denies numbness and Denies tingling Skin/Breast Denies rash, Denies unusual bruising and Denies wounds Neuro Denies abnormal gait, Denies dizziness, Denies headache(s), Denies memory loss, Denies numbness, Denies Sensory deficit (Neuro), Denies tingling and Denies weakness Psych Denies anxiety, Denies depression and Denies memory loss Endo Denies cold intolerance, Denies fatigue, Denies heat intolerance, Denies polydipsia and Denies polyuria Chase/Lymph Denies easy bleeding and Denies easy bruising Aller/Immun Denies wheezing Physical exam (Primary Care) Vital Signs: Last Vital Signs Temp 98.3 F 12/19/24 08:24 Pulse 89 12/19/24 08:24 Resp 16 12/19/24 08:24 BP 121/68 11/14/25 08:24 Pulse Ox 98 12/19/24 08:24 Oxygen Delivery Method Room Air 12/19/24 08:24 BMI result Body Mass Index 32.3 Tobacco/Smoking Status: Tobacco use Status Tobacco use date assessed 12/19/24 12/19/24 08:24 Patient Tobacco Use Status Never used Tobacco 12/19/24 08:15 e-Cigarette/Vaping Use Currently Using 12/19/24 08:15 PHQ-9: PHQ-9 Score PHQ-9: Total score 5 12/19/24 08:56 Depression Screening Interpretation: Positive Depression Screening Follow-up: Existing condition and In treatment Thrive Assessment: Date of Thrive Assessment Date Thrive assessed 12/19/24 12/19/24 08:15 Currently or been in a relationship where the following occur: Controlled Emotionally Const Other: General: no acute distress, well developed, alert and awake Nutritional Appearance: well nourished Orientation/consciousness: patient oriented x3 HENMT Head: Yes normocephalic and Yes atraumatic Ears: hearing grossly normal bilaterally and TM's normal bilaterally General nose exam: Normal external nose present and Normal nares present Mouth: Normal oral and palatal mucosa present and moist mucous membranes Teeth and gingiva: dentition normal Throat: Yes oropharynx normal Eyes Pupils: Equal, round and reactive pupils present and Pupil accommodation reflex normal EOM: EOMs intact bilaterally Neck Neck: Yes normal visual inspection, Yes no lymphadenopathy and Yes trachea midline Thyroid: Thyroid normal Carotids: no bruits Lymphatic: no lymphadenopathy noted Chest Chest palpation & inspection: normal inspection of the chest Resp Effort & Inspection: normal respiratory effort Auscultation: clear to auscultation bilaterally Cardio Rate: regular rate Rhythm: regular rhythm Heart sounds: S1 normal heart sound present, S2 normal heart sound present, no gallops, no murmurs and no rubs Bruits: no abdominal aortic bruits and no carotid bruits GI Palpation (GI): No Abdominal aortic bruit present, Soft to palpation, nontender, No hepatosplenomegaly present and No Rebound tenderness present Auscultation: normal bowel sounds General: Yes no CVA tenderness Back/Spine/Pelvis Back: no CVA tenderness Cervical Spine: cervical ROM normal and No Cervical spine tenderness Thoracic/Lumbar Spine: thoraco-lumbar ROM normal, No pain with thoraco-lumbar ROM, No thoracic spinal tenderness and No lumbar spinal tenderness Skin General: warm and dry. Normal skin color. Normal skin turgor Lesions: no lesions Rashes: no rashes Trauma: no lacerations or abrasions Wounds: no wounds Nails: normal Neuro General: patient oriented x3, gait normal and CN's II-XI intact bilaterally Cranial nerves: Yes Equal, round and reactive pupils present Cognition (Neuro): normal cognition Gait exam (Neuro): Normal gait present Motor exam (neuro): 5/5 motor strength present throughout Sensory Exam: No Sensory deficit (Neuro) Deep tendon reflexes (DTR's): Right patellar reflex intensity grade: 2+ and Left patellar reflex intensity grade: 2+ Extrem General: Yes normal to inspection, No edema and No calf tenderness Psych Appearance: grossly normal Affect: normal affect Attitude: cooperative Thought process: Normal thought process present Office Procedures Flu Questionnaire Does the patient have a severe egg allergy?: No Does the patient have severe life threatening allergies?: No Does the patient have a fever or illness today?: No Has the patient ever had Guillain-Somers Syndrome?: No Has the patient ever had any past reaction to a flu shot?: No Immunizations Fluarix [id number] (PF) 45 mcg (15 mcg x 3)/0.5 mL IM syringe Performing Provider: Sera Peterson CNP Performing Location: [facility] Family Medicine Administered by: Amari Hernández RN on 12/19/24 08:56 Dose Route Admin Location Dispensed Lot Number Expiration Date NDC Criminal Justice Professor 0.5 mL IM Left Deltoid 0.5 mL [id number] 08/04/25 57641-541-77 [employer] VIS Given Date VIS Provided VIS Publication Date 12/19/24 Single Vaccine 24 Eligibility Eligibility Date Funding Source Not [facility] Eligible 12/19/24 Private Coding Level of Care Code Est Pt Level 3 (80208) Est Pt Prev Care 18-39y(36869) Diagnoses Normal physical examination, routine Z00.00 Pap smear for cervical cancer screening Z12.4 Skin cancer screening Z12.83 Screen for STD (sexually transmitted disease) Z11.3 Engages in vaping Z72.89 Laboratory tests ordered as part of a complete physical exam (CPE) Z00.00 Additional Codes CJ-7 Assessment Billing - CJ-7 Assessment Tool: CJ-7 Assessment 27356 ([id number]) PHQ-9 - 10760 - PHQ-9 Billing: Yes ([id number]) Assessment & Plan Assessment & Plan (1) Normal physical examination, routine: Code(s): Z00.00 - Encounter for general adult medical examination without abnormal findings Category: Medical Plan: No significant functional limitation noted. Continue current treatment regimen. Routine exercise encouraged. Follow-up with psychiatry and therapist as planned. Accommodation letter for a standing desk provided. Perform lab work and follow-up for telehealth visit for labs review in 2-3 weeks. Return sooner with symptoms or concerns. Verbalized understanding and agreed with treatment plan. (2) Pap smear for cervical cancer screening: Code(s): Z12.4 - Encounter for screening for malignant neoplasm of cervix Category: Medical Plan: Last pap smear test was about 4 years ago with [facility]: Normal. Referred to [facility] criminal justice professor. (3) Skin cancer screening: Code(s): Z12.83 - Encounter for screening for malignant neoplasm of skin Category: Medical Plan: Referred to [facility]. (4) Screen for STD (sexually transmitted disease): Code(s): Z11.3 - Encounter for screening for infections with a predominantly sexual mode of transmission Category: Medical Plan: She is sexually active, in a polygamous relationship, does not use protection, and has no concerns for STDs. Safe sex practice instructed and encouraged. Labs ordered for STD screening. (5) Engages in vaping: Code(s): Z72.89 - Other problems related to lifestyle Category: Medical Plan: She vapes nicotine daily. Instructed on the health risks and complications have nicotine vaping and cessation encouraged. Will prescribe treatment for nicotine dependence as needed. (6) Laboratory tests ordered as part of a complete physical exam (CPE): Code(s): Z00.00 - Encounter for general adult medical examination without abnormal findings Category: Medical Plan: Fasting labs ordered as part of a complete physical exam. Advised to fast for at least 10 hours before getting labs drawn. May drink water Verbalized understanding and agreed with treatment plan. Orders: Orders Complete Blood Count Auto Diff Today Z00.00 - Encounter for general adult medical examination without abnormal findings Microalbumin, Random (w Creat) Today Z00.00 - Encounter for general adult medical examination without abnormal findings UA CC w/rflx Micro + Cult Today Z00.00 - Encounter for general adult medical examination without abnormal findings Drug Screen Urine Today Z11.3 - Encounter for screening for infections with a predominantly sexual mode of transmission Comprehensive [place]. Panel Fast Today Z00.00 - Encounter for general adult medical examination without abnormal findings Lipid Panel Today Z00.00 - Encounter for general adult medical examination without abnormal findings TSH reflex Free T4 Today Z00.00 - Encounter for general adult medical examination without abnormal findings Vitamin D 25-OH Total Today Z00.00 - Encounter for general adult medical examination without abnormal findings Influenza [id number] Immunization Today Z23 - Encounter for immunization Hepatitis B,C Profile Today Z11.3 - Encounter for screening for infections with a predominantly sexual mode of transmission Syphilis Screen Today Z11.3 - Encounter for screening for infections with a predominantly sexual mode of transmission HIV Ab/Ag Today Z11.3 - Encounter for screening for infections with a predominantly sexual mode of transmission Referrals Dermatology Referral Z12.83 - Encounter for screening for malignant neoplasm of skin G[facility] Referral Z12.4 - Encounter for screening for malignant neoplasm of cervix
[2024-12-19 08:24] VITALS: BP 121/68; PULSE 89; RESP 16; TEMP 36.8; O2SAT 98; BMI 32.3
== END 2024-12-19 08:55 | disposition home or self-care (01) ==
LOC: HO.HMCFM 08:11
PROVIDERS: PCP Nurse Practitioner Family; Visit Provider Nurse Practitioner Family
DX: Z00.00 Encounter for general adult medical examination without abnormal findings (principal); F14.11 Cocaine abuse, in remission; Z11.3 Encounter for screening for infections with a predominantly sexual mode of transmission; Z23 Encounter for immunization; Z72.89 Other problems related to lifestyle

== ENCOUNTER 2024-12-30 13:02 | Outpatient (AMB) | payer OTHER, SELFPAY ==
--- NOTE | 2024-12-30 12:54 | A.OFFPC_ITS ---
Intake Visit Reasons: Tele 2-3 wks labs review Intake Note: patient here for 2-3 wks Telehealth follow up on labs review Field Inspector Required: No Is last menstrual period known: Yes Last menstrual period: 12/19/24 Post menopausal: No Patient : No Allergies oxicodone Allergy (Mild, Uncoded 12/30/24 12:55) Itching Tobacco use date assessed: 12/30/24 Dental Screening Dental Screen Date: 12/30/24 Did you have a dental visit in the last 12 months?: Yes Did you have a dental problem in the last 6 months where you did not have access to dental care?: No Was dental information given to patient?: Patient has dentist HPI HPI Comments History of Present Illness Details 24-year-old [facility] for review of recent lab results. She admits to taking her medications as prescribed without adverse reactions. She notes that she drinks occasionally; her last drink was last month. She is unsure of family history of HLD. She offers no complaints and denies acute symptoms at this time. [facility] Medical History Dysuria Lumbar back pain History of PCOS Cocaine addiction PTSD (post-traumatic stress disorder) Depression Anxiety Sinusitis Asthma Surgical History (Updated 04/03/24 @ 14:33 by Brooke Restrepo) [place] teeth removed H/O adenoidectomy History of tonsillectomy Family History Father Substance abuse Alcohol abuse FH: mental illness Asthma Mother Substance abuse Alcohol abuse FH: mental illness Asthma Maternal Grandfather Diabetes Maternal Grandmother Leukemia Social History Household Members: Family Housing: House Patient Tobacco Use Status: Never used Tobacco e-Cigarette/Vaping Use: Currently Using Second Hand Smoke Exposure: Yes Substance Use Type: Crack/Cocaine, Marijuana and Other Patient : No service: No Current occupational status: employed 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 Asael Limon, Licha Norris, Victoriano Mane and colleagues, with an educational juwan from [employer]. Review of Systems Const Details: Denies chills, Denies fatigue, Denies fever(s), Denies headache(s) and Denies weakness Cardiac Denies chest pain, Denies claudication, Denies leg edema, Denies lightheadedness, Denies palpitations, Denies dyspnea, Denies dyspnea on exerti on, Denies orthopnea and Denies other (Loss of consciousness) Resp Denies cough, Denies excessive phlegm production, Denies dyspnea, Denies dyspnea on exertion, Denies snoring and Denies wheezing Physical exam (Primary Care) Tobacco/Smoking Status: Tobacco use Status Tobacco use date assessed 12/30/24 12/30/24 12:56 Patient Tobacco Use Status Never used Tobacco 12/30/24 12:55 e-Cigarette/Vaping Use Currently Using 12/30/24 12:55 Thrive Assessment: Date of Thrive Assessment Date Thrive assessed 12/19/24 12/30/24 12:55 Const Other: Patient is alert and oriented x4 Telehealth Telehealth Telehealth Platform: Telephone Location of provider rendering services: practice address Location of patient: address on file Patient Identification confirmed using: Name, : Yes Telehealth method: voice only Patient verbally consented to treatment: Yes Patient verbally consented to billing insurance company: Yes Patient informed of any privacy concerns related to visit: Yes Coding Level of Care Code Tele Est Pt Level 3 (68176) Diagnoses Hypercholesterolemia E78.00 Elevated fasting glucose R73.01 Abnormal urinalysis R82.90 Time Spent (min) 15 Assessment & Plan Assessment & Plan (1) Hypercholesterolemia: Code(s): E78.00 - Pure hypercholesterolemia, unspecified Category: Medical Plan: Recent total cholesterol and LDL levels are elevated, 209 and 138 respectively, previous level were 166 and 83 respectively. Recent triglycerides and HDL levels are normal. Advised to limit foods high in saturated fat and avoid foods high in trans fat. Routine exercise encouraged. Fast for 10-12 hours, may drink water, and perform lipid panel blood work a few days before next visit. Follow-up in 2 months for transfer of care with a new provider within the practice. Return sooner with symptoms or concerns. Verbalized understanding and agreed with the plan. (2) Elevated fasting glucose: Code(s): R73.01 - Impaired fasting glucose Category: Medical Plan: Recent fasting glucose is slightly elevated, 101. Routine exercise and healthy diet, including low carbs encouraged. Will recheck fasting glucose and make changes as needed. Verbalized understanding and agreed with the plan. (3) Abnormal urinalysis: Code(s): R82.90 - Unspecified abnormal findings in urine Category: Medical Plan: Recent urinalysis is positive for red blood cells and bacteria. Urine culture did not reflex. Denies urinary symptoms at this time. She has history of UTIs. Adequate hydration encouraged. Proper perineal hygiene instructed and encouraged. Will recheck urine/culture and make changes as needed. Verbalized understanding and agreed with plan. Orders: Orders Lipid Panel 2 Months E78.00 - Pure hypercholesterolemia, unspecified UA CC w/rflx Micro + Cult Today R82.90 - Unspecified abnormal findings in urine Glucose Fasting 2 Months R73.01 - Impaired fasting glucose
--- OUTSIDE RECORDS SUMMARY | 2024-12-30 16:48 | XMS_ITS | Data Portability ---
Author Organization [facility] [address] Address [address] [place] [address] Assessment Encounter Date Assessment Date Assessment LastModified [...] Lab urinalysis, dipstick 2023 024 [email or web address] [facility] [address] [place], [address], 19:03:12 culture, urine 2023 024 [place] [facility], [address] [place] [address], [place], [address], 22:05:54 test, urine 2023 024 jay [facility], [address] [place], [address], 17:20:59 urinalysis, dipstick 2023 024 jay [address], [address], [place], [address], 17:21:00 culture, urine 2023 [place] [facility] ([place]), [address], [place], [address], 20:06:17 Referral None recorded. Procedures None recorded. Surgeries None recorded. Imaging None recorded. Medication Orders cephalexin 500 mg capsule 2023 [facility] - [place], [address] [place], [address], 10:04:24 Diflucan 150 mg tablet 2023 [facility] - [place], [address] [place], [address], 10:04:24 Patient TargetsNo targets recorded. Patient Instructions Encounter Date Encounter Id Patient Instructions Last Modified By Organization Details Last Modified Time 05/28/2023 [id number] painful urinatio n (dysuria): care instructions jay Not available 05/28/2023 17:20:57 09/27/2023 [id number] painful urinatio n (dysuria): care instructions sen Not available 09/27/2023 19:03:10 Reason for Referral None Reported. Results Created Date Observation Date Name Description Value Unit Range Abnormal Flag Note LastModifiedBy Organization Detail LastModifiedTime 05/28/1905/31/2023 URINE CULTU CECILIO BONILLA urine culture, routine FINAL REPORT abnormal Not Available [facility] ([facility]) [address] [facility], [place], [address], 05/31/2023 20:06:16 05/28/19 24 05/31/2023 URINE CULTU [...] p A). (CLSI ) Not Available [facility] ([facility]) [address] [place], [address], 05/31/2023 20:06:16 05/28/19 24 05/31/2023 URINE CULTU RE, ROUTI NE result 2 COMMEN T Mixed uroge nital jose 10,00 0-25, 000 colon y formi ng units per mL Not Available [facility] ([facility]) [address] [place], [address], 05/31/2023 20:06:16 05/28/19 24 05/28/2023 urina lysis , dipst ick Unknown Analyte Yellow Not Available [facility] [address] [place] [address], [address], 05/28/2023 16:56:28 05/28/19 24 05/28/2023 urina lysis , dipst ick Unknown Analyte Slight ly Cloudy Not Available ie [facility] [address] [place] [address], [address], 05/28/2023 16:56:28 05/28/19 24 05/28/2023 urina lysis , dipst ick Unknown Analyte Negati ve Not Available [facility] [address] [place] [address], [address], 05/28/2023 16:56:28 05/28/19 24 05/28/2023 urina lysis , dipst ick Unknown Analyte Negati ve Not Available [facility] [address] [place] [address], [address], 05/28/2023 16:56:28 05/28/19 24 05/28/2023 urina lysis , dipst ick Unknown Analyte Trace Not Available [facility] [address] [place] [address], [address], 05/28/2023 16:56:28 05/28/19 24 05/28/2023 urina lysis , dipst ick Unknown Analyte 1.025 Not Available [address], [address], 05/28/2023 16:56:28 05/28/19 24 05/28/2023 urina lysis , dipst ick Unknown Analyte Trace- intact Not Available [facility] [address] [place] [address], [address], 05/28/2023 16:56:28 05/28/19 24 05/28/2023 urina lysis , dipst ick Unknown Analyte 6.5 Not Available [facility] [address] [place] [address], [address], 05/28/2023 16:56:28 05/28/19 24 05/28/2023 urina lysis , dipst ick Unknown Analyte 30 mg/dL Not Available [facility] [address] [place] [address], [address], 05/28/2023 16:56:28 05/28/19 24 05/28/2023 urina lysis , dipst ick Unknown Analyte 1.0 E.U./d L Not Available [facility] [address] [place] [address], [address], 05/28/2023 16:56:28 05/28/19 24 05/28/2023 urina lysis , dipst ick Unknown Analyte Negati ve Not Available [facility] [address] [place] [address], [address], 05/28/2023 16:56:28 05/28/19 24 05/28/2023 urina lysis , dipst ick Unknown Analyte Negati ve Not Available [facility] [address] [place] [address], [address], 05/28/2023 16:56:28 05/28/19 24 05/28/2023 pregn anthony test, urine Unknown Analyte negati ve Not Available [facility] [address] [place] [address], [address], 05/28/2023 16:56:06 09/27/19 24 09/28/2023 URINE CULTU RE, ROUTI NE urine culture, routine FINAL REPORT Not Available [facility] ([facility]) [address] [place], [address], 09/28/2023 22:05:54 09/27/19 24 09/28/2023 URINE CULTU RE, ROUTI NE result 1 COMMEN T Cultu re shows less than 10,00 0 colon y formi ng units of bacte usama per fina liter of urine . This colon y count is not gener ally consi dered to be clini edith signi fican t. Not Available [facility] ([facility]) [address] [facility], [place], [address], 09/28/2023 22:05:54 09/27/19 24 09/27/2023 urina lysis , dipst ick Unknown Analyte Normal = light yellow Not Available [facility] [address] [place] [address], [address], 09/27/2023 18:46:13 09/27/19 24 09/27/2023 urina lysis , dipst ick Unknown Analyte Yellow Not Available [facility] [address] [place] [address], [address], 09/27/2023 18:46:13 09/27/19 24 09/27/2023 urina lysis , dipst ick Unknown Analyte Normal = clear Not Available [facility] [address] [address] [place] [address], [address], 09/27/2023 18:46:13 09/27/19 24 09/27/2023 urina lysis , dipst ick Unknown Analyte Clear Not Available [facility] [address] [place] [address], [address], 09/27/2023 18:46:13 09/27/19 24 09/27/2023 urina lysis , dipst ick Unknown Analyte Normal = negati ve Not Available [facility] ie [facility] [address] [place] [address], [address], 09/27/2023 18:46:13 09/27/19 24 09/27/2023 urina lysis , dipst ick Unknown Analyte Negati ve Not Available [facility] [address] [address] [place] [address], [address], 09/27/2023 18:46:13 09/27/19 24 09/27/2023 urina lysis , dipst ick Unknown Analyte Normal = Negati ve Not Available [facility] ie [facility] [address] [place] [address], [address], 09/27/2023 18:46:13 09/27/19 24 09/27/2023 urina lysis , dipst ick Unknown Analyte Negati ve Not Available [facility] [address] [address] [place] [address], [address], 09/27/2023 18:46:13 09/27/19 24 09/27/2023 urina lysis , dipst ick Unknown Analyte Normal = Negati ve Not Available [facility] [address] [place] [address], [address], 09/27/2023 18:46:13 09/27/19 24 09/27/2023 urina lysis , dipst ick Unknown Analyte 40 mg/dL Not Available [facility] [address] [place] [address], [address], 09/27/2023 18:46:13 09/27/19 24 09/27/2023 urina lysis , dipst ick Unknown Analyte Normal = 1.010, 1.015, 1.020 Not Available [facility] [address] [place] [address], [address], 09/27/2023 18:46:13 09/27/19 24 09/27/2023 urina lysis , dipst ick Unknown Analyte 1.015 Not Available [facility] [address] [place] [address], [address], 09/27/2023 18:46:13 09/27/19 24 09/27/2023 urina lysis , dipst ick Unknown Analyte Normal = Negati ve Not Available [facility] [address] [place] [address], [address], 09/27/2023 18:46:13 09/27/19 24 09/27/2023 urina lysis , dipst ick Unknown Analyte Trace- lysed Not Available [facility] [address] [place] [address], [address], 09/27/2023 18:46:13 09/27/19 24 09/27/2023 urina lysis , dipst ick Unknown Analyte Normal = 6.5, 7.0, 7.5, 8.0 Not Available [facility] [address] [place] [address], [address], 09/27/2023 18:46:13 09/27/19 24 09/27/2023 urina lysis , dipst ick Unknown Analyte 7.0 Not Available [facility] [address] [place] [address], [address], 09/27/2023 18:46:13 09/27/19 24 09/27/2023 urina lysis , dipst ick Unknown Analyte Normal = Negati ve Not Available [facility] [address] [place] [address], [address], 09/27/2023 18:46:13 09/27/19 24 09/27/2023 urina lysis , dipst ick Unknown Analyte Negati ve Not Available [facility] [address] [place] [address], [address], 09/27/2023 18:46:13 09/27/19 24 09/27/2023 urina lysis , dipst ick Unknown Analyte Normal = 0.2, 1.0 Not Available [facility] [address] [place] [address], [address], 09/27/2023 18:46:13 09/27/19 24 09/27/2023 urina lysis , dipst ick Unknown Analyte 0.2 E.U./d L Not Available [facility] [address] [place] [address], [address], 09/27/2023 18:46:13 09/27/19 24 09/27/2023 urina lysis , dipst ick Unknown Analyte Normal = Negati ve Not Available [facility] [address] [place] [address], [address], 09/27/2023 18:46:13 09/27/19 24 09/27/2023 urina lysis , dipst ick Unknown Analyte Negati ve Not Available [facility] ie [address] [place], [address], 09/27/2023 18:46:13 09/27/19 24 09/27/2023 urina lysis , dipst ick Unknown Analyte Normal = Negati ve Not Available [facility] [address] [place], [address], 09/27/2023 18:46:13 09/27/19 24 09/27/2023 urina lysis , dipst ick Unknown Analyte Negati ve Not Available [facility] [address] [place], [address], 09/27/2023 18:46:13 Result Notes None recorded. Problems Name Problem SNOMED Code Status Onset Date Resolution Date Notes Provider Name and Address Organization Details Recorded Time Acne 56857975 Active Noemi ayon, [place] - [facility] 4 16:52:04 Depressive disorder 54111818 Active Noemi ayon, PA - [facility] 4 16:52:24 Dysuria 55534992 Active 024 BUZZ LEAHY NP [address] [facility] [place] [place], [address], [place] - [facility] 4 17:14:24 Urinary symptoms 532332756 Active 024 BUZZ LEAHY NP [address] [facility] [place], [address], PA - [facility] 4 17:15:30 Notes:PCOS Problem Notes None recorded. Medical Equipment None Reported. Allergies Allergen ID Allergen Name Allergen Category Reaction Reaction Severity Criticality Documentation Date Start Date Code Code System Note Provider Name and Address Organization Details Recorded Time 625667 Oxycontin medicatio n Not available Not available Not available 05/28/2023 27261 6 RxNorm Noemi ayon, PA - [facility] 4 16:50:17 088644 oxycodone medicatio n Not available Not available [...] mass index (BMI) Body weight Oxygen saturation Heart rate Respiratory rate Body temperature Systolic And Diastolic Provider Name and Address Organization Details Last Updated DateTime 4 162.56 cm 23.2 kg/m2 90160.9 7 g 97 % 76 /min 16 /min 98.3 [degF] 114/74 mm[Hg] Noemi Zuniga PA - [facility] 4 16:55:21 Date Recorded Body height Body mass index (BMI) Body weight Oxygen saturation Heart rate Respiratory rate Body temperature Systolic And Diastolic Provider Name and Address Organization Details Last Updated DateTime 4 162.56 cm 23.2 kg/m2 40510.9 7 g 98 % 78 /min 18 /min 98 [degF] 126/77 mm[Hg] ITALO SHAH PA - [facility] 18:45:54 Social History Question Answer Notes LastModified by [employer] Details LastModified Time Tobacco Smoking Status Current Every Day Smoker Noemi ayon PA - [facility] 05/28/2023 16:53:58 Which Illicit Or Recreational Drugs Have You Used? Marijuana [email or web address] Information not available 05/28/2023 Sex: Unknown Functional Status Question Answer Note LastModified by [employer] Details LastModified Time Do you use any illicit or recreational drugs? Yes [email or web address] Information not available 05/28/2023 Do you or have you ever used any other forms of tobacco or nicotine? Yes [email or web address] Information not available 05/28/2023 What is your level of alcohol consumption? Occasional [email or web address] Information not available 05/28/2023 Do you or have you ever used smokeless tobacco? Never used smokeless tobacco [email or web address] Information not available 05/28/2023 Do you or have you ever used e-cigarettes or vape? Current user of electronic cigarettes [email or web address] Information not available 05/28/2023 Mental Status None [...] ICD10 Code Diagnosis IMO Codes Diagnosis Note [id number] [facility] [address] [address] 11/07/2017 11:03:53 11/07/2017 12:41:24 [id number] [facility] [address] [address] 11/03/2020 08:37:23 11/03/2020 12:06:13 [id number] BUZZ LEAHY [place] [address] [place] [address] 05/28/2023 16:44:49 05/28/2023 17:31:20 Dysuria 22518326 R30.0 Urinary symptoms 7233240 08 R39.9 [id number] [place] [address] [place] [address] 09/27/2023 18:15:02 09/27/2023 19:06:00 Dysuria [id number] R30.0 The following are recommenda tions to [...] was prescribed . Thank you for using [facility] - please don't hesitate to call our [...] Brody Member ID Guarantor Name 09/27/2023 1 [facility] [id number] Maci Osman [id number] Ayana Berg Notes Date Note Type Note Provider Name and Address Organization Details Recorded Time 4 text/htm l DysuriaReported by PatientHPIFor quality, patient reportspressure(recently treated for a utinow has flank pain,urinary hesitancy and sensation of incomplete emptying). For severity, patient reportsworseningbut reportssevere. For duration, patient reportsconstant. BUZZ LEAHY NP [address] [place], [address], [place] - [facility] 05/28/2023 17:31:54 4 text/htm l UTI [...] Huber NP [address] [place], [address], [place] - [facility] 09/27/2023 19:05:15 OBGyn Episode No OBEpisode recorded.
== END 2024-12-30 14:14 | disposition home or self-care (01) ==
LOC: HO.HMCFM 13:02
PROVIDERS: PCP Nurse Practitioner Family; Visit Provider Nurse Practitioner Family
DX: E78.00 Pure hypercholesterolemia, unspecified (principal); R73.01 Impaired fasting glucose; R31.21 Asymptomatic microscopic hematuria; R82.71 Bacteriuria